=== PATIENT | male | born 1980 | race Caucasian/White ===

== ENCOUNTER 2017-09-28 06:04 | Emergency (ER) | payer OTHER ==
[~2017-09-28] VITALS: Ht 172.7 cm; Wt 103.3 kg
[~2017-09-28 06:04] MED LIST: MAGIC MOUTHWASH1 ML MM; ZOLOFT100 MG PO
[2017-09-28 07:59] LABS: HEMATOCRIT 44.5 % (38.0-50.0); HEMOGLOBIN 15.1 G/DL (12.5-16.6); MCH 28.8 PG (29.0-34.0); MCHC 33.9 G/DL (30.0-36.0); MCV 84.8 FL (86-99); PLATELET COUNT 189 K/uL (156-360); RBC DIS.WIDTH-CV 12.6 % (11.8-14.6); RBC DIS.WIDTH-SD 38.8 % (39-53); RED BLOOD COUNT 5.25 M/uL (4.00-5.50); WHITE BLOOD COUNT 12.3 K/uL (4.1-10.2)
[2017-09-28 08:30] LABS: ALBUMIN 4.3 G/DL (3.2-4.8); ALKALINE PHOSPHATASE 84 IU/L (3-129); ALT (GPT) 49 IU/L (3-49); AST (GOT) 22 IU/L (2-34); CHLORIDE 104 MEQ/L (99-109); CREATININE 0.9 MG/DL (0.6-1.3); GFR ESTIMATE (CALCULATED) > 59 mL/min/ (58.99-99999); GLUCOSE 118 mg/dL (70-99); LIPASE 20 U/L (1.0-51.0); POTASSIUM 4.1 MEQ/L (3.7-5.4); SODIUM 138 MEQ/L (136-147); TOTAL BILIRUBIN 0.5 MG/DL (0.0-1.0); TOTAL PROTEIN 6.9 G/DL (6.4-8.3); UREA NITROGEN (BUN) 19 mg/dL (9-23)
[2017-09-28 10:23] LABS: APPEARANCE CLEAR ((CLEAR)); BILIRUBIN NEGATIVE; BLOOD NEGATIVE; COLOR YELLOW ((YELLOW)); GLUCOSE (STRIP) NEGATIVE; KETONES NEGATIVE; LEUKOCYTES NEGATIVE; NITRITE NEGATIVE; PROTEIN (STRIP) NEGATIVE; UCUL ADDED? NO; UROBILINOGEN 0.2 MG/DL (0.2-1.0)
[2017-09-28] MEDS ORDERED: ZOFRAN4 MG PO (10:28)
[2017-09-28] MEDS ORDERED: FLAGYL500 MG PO (10:28)
[2017-09-28] MEDS ORDERED: LEVAQUIN750 MG PO (10:28)
[2017-09-28] MEDS ORDERED: PERCOCET 5/31 TABLET PO (10:28)
[2017-09-28 10:48] VITALS: BP 123/67
== END 2017-09-28 10:49 | disposition home or self-care (01) ==
LOC: EME 06:04
DX: K57.32 Diverticulitis of large intestine without perforation or abscess without bleeding (principal); F41.9 Anxiety disorder, unspecified; Z87.891 Personal history of nicotine dependence
CPT/HCPCS: 74177; 80053; 81003; 83690; 85027; 99281; 99284; J1885; J2405

== ENCOUNTER 2017-11-12 08:47 | Emergency (ER) | payer BC ==
[~2017-11-12] VITALS: Ht 170.2 cm; Wt 103.1 kg
[~2017-11-12 08:47] MED LIST changes: +FLAGYL500 MG PO; +LEVAQUIN750 MG PO; +PERCOCET 5/31 TABLET PO; +ZOFRAN4 MG PO
[2017-11-12 08:51] VITALS: BP 142/84
== END 2017-11-12 11:49 | disposition home or self-care (01) ==
LOC: EME 08:47
DX: S89.92XA Unspecified injury of left lower leg, initial encounter (principal); X50.1XXA Overexertion from prolonged static or awkward postures, initial encounter; Z91.013 Allergy to seafood
CPT/HCPCS: 73564; 99281; 99283

== ENCOUNTER → 2018-01-14 | Outpatient (CLI) | payer BC | END | disposition home or self-care (01) | LOC: CDC 08:19 | DX: Z01.810 Encounter for preprocedural cardiovascular examination (principal); M25.562 Pain in left knee; M23.322 Other meniscus derangements, posterior horn of medial meniscus, left knee; R00.1 Bradycardia, unspecified | CPT/HCPCS: 93000 ==